=== PATIENT | male | born 1980 | race Caucasian/White ===

== ENCOUNTER → 2021-11-13 | Outpatient (REF) | payer BC ==
[2021-11-13 21:30] LABS: TESTOSTERONE 280 NG/DL (241-827); VITAMIN B12 LEVEL 1000 PG/ML
== END ==
LOC: M LAB REF 16:43
PROVIDERS: ATTEND Registered Nurse
DX: R53.83 Other fatigue (principal); R68.82 Decreased libido

== ENCOUNTER 2023-12-01 11:35 | Day surgery (SDC) | payer BC ==
[~2023-12-01] VITALS: Ht 175.3 cm; Wt 89.7 kg
[~2023-12-01 11:35] MED LIST: ACET-907 PO; OMEP40CA5 PO
[2023-12-01] MEDS ORDERED: propofoL 200 MG/20 ML VIAL As Ordered ONE (12:38)
[2023-12-01] MEDS ORDERED: LIDOCAINE 2% 100MG/5ML SDV (FOR ANES.) As Ordered ONE (12:38)
[2023-12-01] MEDS ORDERED: propofoL 500 MG/50 ML VIAL As Ordered ONE (12:38)
[2023-12-01] MEDS ORDERED: fentaNYL 100 MCG/2 ML INJECTION As Ordered ONE (12:44)
[2023-12-01 13:16] VITALS: TEMP 97.2
[2023-12-01 13:35] VITALS: BP 138/89; O2SAT 98
== END 2023-12-01 13:52 | disposition home or self-care (01) ==
LOC: M OPP 11:35
PROVIDERS: ATTEND Internal Medicine Gastroenterology
DX: Z12.11 Encounter for screening for malignant neoplasm of colon (principal); K63.5 Polyp of colon; K64.4 Residual hemorrhoidal skin tags; K64.8 Other hemorrhoids; K57.30 Diverticulosis of large intestine without perforation or abscess without bleeding; K29.70 Gastritis, unspecified, without bleeding; K21.00 Gastro-esophageal reflux disease with esophagitis, without bleeding; R12 Heartburn; Z79.1 Long term (current) use of non-steroidal anti-inflammatories (NSAID)
CPT/HCPCS: 43239; 45385; 88305; J3010